=== PATIENT | male | born 1985 | race Caucasian/White ===

== ENCOUNTER 2021-03-08 14:07 | Emergency (ER) | payer OTHER, SELFPAY ==
--- NOTE | 2021-03-08 14:11 | ED.URI ---
HPI - URI/Sore Throat General Chief Complaint: Upper Respiratory Infection Stated Complaint: nausea sore throat achey Time Seen by Provider: 03/08/21 14:12 Source: patient and RN notes reviewed History of Present Illness HPI Narrative: Patient is a 36-year-old male who presents the urgent care with complaints of nausea, vomiting, sore throat, headache and body aches. Patient states that it started approximately 2 to 3 days ago and he started vomiting last night. Patient denies any abdominal pain or diarrhea. Denies of any known exposure to Covid or strep. Patient states he has had the Covid vaccine. Patient has been taking ibuprofen and Pepto-Bismol for his symptoms. No other acute complaints. No acute distress noted. Patient aware of the plan of care. Some parts of this dictation were generated by voice recognition software and may contain typographical and/or grammatical inaccuracies. Related Data Home Medications Medication Instructions Recorded Confirmed No Home Medications 03/08/21 03/08/21 Allergies Allergy/AdvReac Type Severity Reaction Status Date / Time No Known Allergies Allergy Verified 03/08/21 14:17 Review of Systems Review of Systems: CONSTITUTIONAL: Denies fever, chills, or sweats. EYES: Denies visual changes, redness, or discharge. ENT: Denies rhinorrhea, congestion, otalgia. Reports a sore throat CARDIOVASCULAR: Denies chest pain, palpitations, or edema. RESPIRATORY: Denies cough or dyspnea. GASTROINTESTINAL: Reports of nausea and vomiting without diarrhea or abdominal pain GENITOURINARY: Denies dysuria or hematuria. SKIN: Denies rash or itching. MUSCULOSKELETAL: Denies back pain, joint pain. Reports body aches NEUROLOGIC: Reports of headache. Denies numbness, or weakness. All other systems reviewed are negative, except as documented in HPI. PMFSH Comments At the time of my signature, I reviewed and agree with the nursing past medical, surgical, social, and family history. There is no relevant family history pertinent to the patient complaint. Exam Narrative: GENERAL: This is a well-nourished, well-developed patient, in no apparent distress. HEAD: normocephalic, atraumatic. EYES: PERRL. Sclera clear/white. Vision is grossly intact. EARS: External ears normal, auditory canals clear and without drainage, TMs normal without perforation. Hearing grossly intact. NOSE: External nose normal with no obvious nasal discharge, nares without redness, no rhinorrhea. THROAT: Mucous membranes moist, moderate erythema noted posterior oropharynx with mild postnasal drainage NECK: Neck supple CARDIOVASCULAR: Regular rate and rhythm without murmurs, gallops, or rubs. RESPIRATORY: Clear to auscultation. Breath sounds equal bilaterally. No wheezes, rales, or rhonchi. GASTROINTESTINAL: Abdomen soft, non-tender, nondistended. SKIN: warm, intact with no suspicious lesions or rash, good texture and turgor. NEURO: awake, alert, and oriented to person, place and time. There were no obvious focal neurologic abnormalities. EXTREMITIES: No clubbing, cyanosis, or edema. Course Vital Signs Vital signs: Vital Signs Temperature 95.8 F L 03/08/21 14:18 Pulse Rate 65 03/08/21 14:18 Respiratory Rate 16 03/08/21 14:18 Blood Pressure 127/81 03/08/21 14:18 Pulse Oximetry 100 03/08/21 14:18 Temperature 95.8 F L 03/08/21 14:18 Pulse Rate 65 03/08/21 14:18 Respiratory Rate 16 03/08/21 14:18 Blood Pressure 127/81 03/08/21 14:18 Pulse Oximetry 100 03/08/21 14:18 Reviewed MDM - URI/Sore Throat MDM Narrative Medical decision making narrative: Reviewed lab results with the patient. He is aware that flu swab and strep swab were both negative. Educated patient on culture and we will call within 72 hours if culture is positive for strep and antibiotics are necessary. We will call you regarding your PCR Covid swab within approximately 2 to 3 days. Until then you should remain quarantine at your h
[2021-03-08 14:18] VITALS: BP 127/81; PULSE 65; RESP 16; TEMP 35.4; O2SAT 100
[2021-03-09 21:01] LABS: SARS-CoV-2 RNA PCR Negative
== END 2021-03-08 14:38 | disposition home or self-care (01) ==
PROVIDERS: Emergency Provider Nurse Practitioner Family
DX: J02.9 Acute pharyngitis, unspecified (principal); R11.0 Nausea; R51.9 Headache, unspecified; Z20.822 Contact with and (suspected) exposure to COVID-19
CPT/HCPCS: 87081; 87804; 87880; 99213; C9803; G0463; U0003; U0005